=== PATIENT | male | born 1960 | race Caucasian/White ===

== ENCOUNTER 2023-07-30 09:12 | Emergency (ER) | payer OTHER ==
[~2023-07-30] VITALS: Ht 185.4 cm; Wt 78.9 kg
[2023-07-30] MEDS ORDERED: CARB-277 EACH EAR (10:28)
[2023-07-30 10:44] VITALS: BP 118/80; TEMP 98; O2SAT 99
== END 2023-07-30 10:44 | disposition home or self-care (01) ==
LOC: ER 09:12
DX: H61.23 Impacted cerumen, bilateral (principal); E11.9 Type 2 diabetes mellitus without complications; Z79.899 Other long term (current) drug therapy
CPT/HCPCS: A4606; A4663

== ENCOUNTER 2023-09-03 08:59 | Emergency (ER) | payer OTHER ==
[~2023-09-03] VITALS: Ht 185.4 cm; Wt 78.0 kg
[~2023-09-03 08:59] MED LIST: CARB-277 EACH EAR
[2023-09-03] MEDS ORDERED: DOCUSATE SODIUM 100 MG/10 ML LIQUID UDC ONE (09:57)
[2023-09-03] MEDS: DOCUSATE SODIUM 100 MG/10 ML LIQUID UDC NG ONE (10:00)
[2023-09-03 10:31] VITALS: BP 122/70; TEMP 98; O2SAT 99
== END 2023-09-03 10:32 | disposition home or self-care (01) ==
LOC: ER 08:59
DX: H61.23 Impacted cerumen, bilateral (principal); E11.9 Type 2 diabetes mellitus without complications; Z79.899 Other long term (current) drug therapy
CPT/HCPCS: A4606; A4663